=== PATIENT | female | born 1990 | race Caucasian/White ===

== ENCOUNTER 2017-11-05 13:20 | Emergency (ER) | payer OTHER ==
[~2017-11-05] VITALS: Ht 160 cm; Wt 68.0 kg
[~2017-11-05 13:20] MED LIST: CIPROFLOXACIN500 M1 PO; KEFLEX500 MG PO; PRENA1 SOFTGEL1 EACH; ZOFRAN ODT4 MG SUBLING
[2017-11-05] MEDS ORDERED: ZANTAC 150MG T150 MG PO (13:26)
[2017-11-05 14:10] LABS: URINE BILIRUBIN NEGATIVE (Negative); URINE BLOOD NEGATIVE (Negative); URINE CLARITY CLEAR; URINE COLOR YELLOW; URINE GLUCOSE-RANDOM NEGATIVE (Negative); URINE KETONES NEGATIVE (Negative); URINE LEUKOCYTES-REFLEX TRACE (Negative); URINE NITRITE-REFLEX NEGATIVE (Negative); URINE PROTEIN NEGATIVE (Negative); URINE SPECIFIC GRAVITY >= 1.030 (1.005-1.030); URINE UROBILINOGEN 0.2 E.U./dl (0.2-1.0)
[2017-11-05 14:10] LABS: ABSOLUTE BASOPHILS 0.1 thou/uL (0.0-0.2); ABSOLUTE EOSINOPHILS 0.1 thou/uL (0.0-0.7); ABSOLUTE LYMPHOCYTES 2.6 thou/uL (0.8-5.3); ABSOLUTE MONOCYTES 0.4 thou/uL (0.0-1.2); BASOPHILS 1.1 %; HEMATOCRIT 40.4 % (37.0-47.0); HEMOGLOBIN 13.6 gm/dL (12.0-15.0); LYMPHOCYTES 36.6 %; MCH 30.5 pg (26.0-34.0); MCHC 33.7 g/dL (28.0-37.0); MCV 90.5 fL (80.0-100.0); MONOCYTES 5.2 %; MPV 10.4 fl. (7.2-11.1); NUCLEATED RBCS 0 /100WBC; PLATELET COUNT* 210 thou/uL (150-400); POLYS 56.1 %; RBC 4.47 mil/uL (4.20-5.00); RDW-CV 12.2 % (10.5-14.5); WBC 7.1 thou/uL (4.0-11.0)
[2017-11-05 14:21] LABS: ANION GAP 8 mmol/L (7-16); BUN 16 mg/dL (7-18); CALCIUM 8.7 mg/dL (8.5-10.1); CHLORIDE 103 mmol/L (98-107); CO2 27 mmol/L (21-32); CREATININE 0.7 mg/dL (0.6-1.3); GLUCOSE 87 mg/dL (70-99); SODIUM 138 mmol/L (136-145)
[2017-11-05 14:28] LABS: ALBUMIN 3.8 g/dL (3.4-5.0); ALKALINE PHOSPHATASE 45 U/L (46-116); SGOT 16 U/L (15-37); SGPT 26 U/L (30-65); TOTAL BILIRUBIN 0.3 mg/dL (<0.1-1.0); TOTAL PROTEIN 7.2 g/dL (6.4-8.2); TROPONIN-I LEVEL <0.06 ng/mL (<0.06)
[2017-11-05 14:58] LABS: MUCUS 4-6 Moderate strn/LPF (None Seen); SQUAMOUS >10 Many /LPF (0-3)
[2017-11-05 14:59] LABS: CASTS None Seen /LPF (None Seen); CRYSTALS None Seen /LPF (None Seen); URINE RBC None Seen /HPF (0-2); URINE WBC-REFLEX 0-5 Rare /HPF (0-5)
[2017-11-05] MEDS ORDERED: VISTARIL 25 MG25 M1 PO (15:04)
[2017-11-05] MEDS ORDERED: ONDANSETRON HCL4 M2 PO (15:11)
[2017-11-05 15:16] VITALS: BP 103/64
--- NOTE | 2017-11-05 15:31 | EKG ---
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
== END 2017-11-05 15:17 | disposition home or self-care (01) ==
LOC: M.ERS 13:20
PROVIDERS: Nurse Practitioner Family
DX: R07.89 Other chest pain (principal); F41.9 Anxiety disorder, unspecified; K21.9 Gastro-esophageal reflux disease without esophagitis

== ENCOUNTER 2018-09-13 11:18 | Emergency (ER) | payer OTHER ==
[~2018-09-13] VITALS: Ht 162.6 cm; Wt 72.6 kg
[~2018-09-13 11:18] MED LIST changes: +ONDANSETRON HCL4 M2 PO; +VISTARIL 25 MG25 M1 PO; +ZANTAC 150MG T150 MG PO
[2018-09-13] MEDS ORDERED: LAMOTRIGINE150 MG (11:34)
[2018-09-13 11:58] LABS: URINE BLOOD 1+ (Negative); URINE CLARITY SL CLOUDY; URINE COLOR YELLOW; URINE GLUCOSE-RANDOM NEGATIVE (Negative); URINE LEUKOCYTES-REFLEX NEGATIVE (Negative); URINE NITRITE-REFLEX NEGATIVE (Negative); URINE PROTEIN 1+ (Negative); URINE SPECIFIC GRAVITY >= 1.030 (1.005-1.030); URINE UROBILINOGEN 0.2 E.U./dl (0.2-1.0)
[2018-09-13 12:02] LABS: ICTOTEST (BILI CONFIRMATORY) Negative (Negative); URINE BILIRUBIN 2+ (Negative); URINE KETONES 3+ (Negative)
[2018-09-13 12:08] LABS: SQUAMOUS >10 Many /LPF (0-3); URINE RBC 0-2 Rare /HPF (0-2); URINE WBC-REFLEX 0-5 Rare /HPF (0-5)
[2018-09-13 12:09] LABS: CASTS None Seen /LPF (None Seen); CRYSTALS None Seen /LPF (None Seen); MUCUS >6 Heavy strn/LPF (None Seen)
[2018-09-13 12:24] LABS: ABSOLUTE LYMPHOCYTES 0.7 thou/uL (0.8-5.3); ABSOLUTE MONOCYTES 0.4 thou/uL (0.0-1.2); ABSOLUTE NEUTROPHILS 4.4 thou/uL (1.6-8.1); BASOPHILS 0.4 %; EOSINOPHILS 0.2 %; HEMATOCRIT 43.3 % (37.0-47.0); HEMOGLOBIN 14.4 gm/dL (12.0-15.0); LYMPHOCYTES 12.1 %; MCH 29.5 pg (26.0-34.0); MCHC 33.4 g/dL (28.0-37.0); MCV 88.3 fL (80.0-100.0); MONOCYTES 7.8 %; MPV 10.3 fl. (7.2-11.1); NUCLEATED RBCS 0 /100WBC; PLATELET COUNT* 142 thou/uL (150-400); POLYS 79.5 %; RDW-CV 12.2 % (10.5-14.5); WBC 5.5 thou/uL (4.0-11.0)
[2018-09-13 12:32] LABS: ANION GAP 14 mmol/L (7-16); BUN 18 mg/dL (7-18); CALCIUM 8.9 mg/dL (8.5-10.1); CHLORIDE 106 mmol/L (98-107); CO2 21 mmol/L (21-32); CREATININE 0.9 mg/dL (0.6-1.3); GLUCOSE 72 mg/dL (70-99); SODIUM 141 mmol/L (136-145)
[2018-09-13 12:41] LABS: ALBUMIN 3.8 g/dL (3.4-5.0); ALKALINE PHOSPHATASE 51 U/L (46-116); LIPASE 87 U/L (73-393); SGOT 22 U/L (15-37); SGPT 32 U/L (30-65); TOTAL BILIRUBIN 0.5 mg/dL (<0.1-1.0); TOTAL PROTEIN 6.9 g/dL (6.4-8.2); TROPONIN-I LEVEL <0.06 ng/mL (<0.06)
[2018-09-13] MEDS ORDERED: PHENERGAN 25 MG25 M1 PO (14:10)
[2018-09-13] MEDS ORDERED: CARAFATE1 GM/10 ML PO (14:10)
[2018-09-13] MEDS ORDERED: PRILOSEC 20 MG20 MG PO (14:10)
[2018-09-13 14:22] VITALS: BP 91/56
--- NOTE | 2018-09-13 15:24 | EKG ---
[place] [address] ELECTROCARDIOGRAM REPORT Name: BREEZYKELSEY Villeda Room: [facility]#: [id number] Admission: 09/13/18 Attend Phys: Discharge: 09/13/18 Date of : [birth year] Report #: [id number] THIS REPORT FOR: //name// 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1990 Requested By: Ivonne Almonte Order Number: [id number] MD: Jose Antonio Hendrix Measurements Intervals [place] Rate: 106 P: 53 [place]: 134 QRS: 69 QRSD: 74 T: 7 QT: 316 QTc: 420 Interpretive Statements Sinus tachycardia Borderline T abnormalities, inferior leads Compared to ECG 11/05/2017 13:27:34 T-wave abnormality now seen Sinus rhythm no longer present Electronically Signed On 09-13-2018 15:24:09 CDT by Jose Antonio Hendrix [email or web address] <ELECTRONICALLY SIGNED> By: Jose Antonio Hendrix MD, [facility] 09/13/18 1524 1200 1200 Jose Antonio Hendrix MD, FAC /EPI
== END 2018-09-13 14:23 | disposition home or self-care (01) ==
LOC: M.ERS 11:18
PROVIDERS: Nurse Practitioner Family
DX: R10.11 Right upper quadrant pain (principal); R10.13 Epigastric pain; R19.7 Diarrhea, unspecified; F41.9 Anxiety disorder, unspecified; K21.9 Gastro-esophageal reflux disease without esophagitis